=== PATIENT | female | born 1990 ===

== ENCOUNTER 2019-10-17 12:57 | Inpatient (IN) | payer OTHER ==
[2019-10-17] MEDS ORDERED: fentaNYL 100 MCG/2 ML INJ IV PRN (14:12)
[2019-10-17] MEDS ORDERED: ePHEDrine SULFATE 50 MG/1 ML INJ IV PRN (14:12)
[2019-10-17] MEDS ORDERED: BUTORPHANOL 2 MG/1 ML INJ IV PRN (14:12)
[2019-10-17] MEDS ORDERED: MINERAL OIL 30 ML ORAL LIQD PO PRN (14:12)
[2019-10-17] MEDS ORDERED: LIDOCAINE (2%) 20 MG/1 ML VIAL 20 ML MDV INFILTRATI ONE ×2 (14:12→18:09)
[2019-10-17] MEDS ORDERED: TERBUTALINE 1 MG/1 ML INJ IVP PRN (14:12)
[2019-10-17] MEDS ORDERED: ONDANSETRON 4 MG/2 ML INJ IV PRN ×2 (14:12→18:28)
[2019-10-17] MEDS ORDERED: TERBUTALINE 1 MG/1 ML INJ SUB-Q PRN (14:12)
--- NOTE | 2019-10-17 14:44 | History and Physical Report ---
History of Present Illness Date of examination: 10/17/19 Date of admission: 10/17/19 14:03 Chief complaint: Active labor History of present illness: 28 yo, @ 39.1 wks, initiated care with Deric Huston at 9.3 wks gestation. Her has been complicated by anemia and thrombocytopenia. She presents to [facility] with reports of regular painful ctxs for past hour, found to have advanced cervical dilation. Reports + FM. Denies VB or LOF. Labs: O+, antibody negative; VDRL negative; Rubella immune; HBsAg negative; HIV negative; Platelets 128k; Quad marker negative; PAP negative; Gc/Chlamydia negative; 1 hr gtt - 125; GBS negative. Past History Past Medical History: no pertinent history Past Surgical History: no surgical history Family/Genetic History: none Social history: , lives with family, full code. denies: smoking, alcohol abuse, prescription drug abuse, IV drug use - Obstetrical History Expected Date of Delivery: 10/23/19 Actual Gestation: 39 Week(s) 1 Day(s) : 3 Para: 2 Hx # Term Pregnancies: 2 Number of Pregnancies: 0 Spontaneous Abortions: 0 Induced : 0 Number of Living Children: 2 #1 Gender: Male year: 2[birth year] Birthweight: 3.175 kg Method of Delivery: Vaginal Gestational age at delivery: 40 Complications: none #2 Gender: Male year: 2,[birth year] Birthweight: 3.402 kg Method of Delivery: Vaginal Gestational age at delivery: 40 Complications: none Medications and Allergies Allergies Allergy/AdvReac Type Severity Reaction Status Date / Time No Known Allergies Allergy Unverified 10/17/19 14:22 Active Meds: Active Medications Butorphanol Tartrate (Stadol) 2 mg IV Q2H PRN PRN Reason: Pain , Severe (7-10) Ephedrine Sulfate (Ephedrine Sulfate) 10 mg IV Q2M PRN PRN Reason: Hypotension Fentanyl (Sublimaze) 100 mcg IV Q2H PRN PRN Reason: Labor Pain Oxytocin/Sodium Chloride (Pitocin/Ns 20 Unit/1000ml Drip) 20 units in 1,000 mls @ 125 mls/hr IV DIRECT SHELTON Lactated Ringer's (Lactated Ringers) 1,000 mls @ 125 mls/hr IV DIRECT SHELTON Lidocaine (Xylocaine 2%) 20 ml INFILTRATI ONCE ONE Stop: 10/17/19 14:13 Mineral Oil (Mineral Oil) 30 ml PO QHS PRN PRN Reason: Constipation Ondansetron HCl (Zofran) 4 mg IV Q8H PRN PRN Reason: Nausea And Vomiting Terbutaline Sulfate (Brethine) 0.25 mg SUB-Q ONCE PRN PRN Reason: Hyperstimulation/Hypertonicity Terbutaline Sulfate (Brethine) 0.25 mg IVP ONCE PRN PRN Reason: Hyperstimulation/Hypertonicity Review of Systems All systems: negative Genitourinary: contractions (painful) - Vital Signs Vital signs: Vital Signs Pulse BP 88 107/76 10/17/19 13:15 10/17/19 13:15 Temp Pulse Resp BP Pulse Ox 98.8 F 88 16 107/76 10/17/19 13:49 10/17/19 13:49 10/17/19 13:49 10/17/19 13:49 - Physical Exam Breasts: Positive: normal Cardiovascular: Regular rate Lungs: Positive: Normal air movement Abdomen: Positive: other (gravid) Genitourinary (Female): Positive: normal external genitalia, normal perenium Vagina: Positive: normal moisture Uterus: Positive: enlarged (S=D) Anus/Rectum: Positive: normal perianal skin Extremities: Positive: normal Deep Tendon Reflex Grade: Normal +2 - Obstetrical FHR: category 1 Uterine Contraction Monitor Mode: External Cervical Dilatation: 7.5 (vertex) Cervical Effacement Percentage: 70 station: -1 Uterine Contraction Frequency (min): 2-4 Uterine Contraction Pattern: Irregular Uterine Tone Measurement Phase: Resting Uterine Contraction Intensity: Strong/Firm Results Result Diagrams: 10/17/19 14:00 All other labs normal. Assessment and Plan - Patient Problems (1) Active labor at term Current Visit: Yes Status: Acute Plan to address problem: Admit to L & D Pain meds as desired Anticipate (2) Thin meconium stained amniotic fluid Current Visit: Yes Status: Acute Plan to address problem: AROM @ 1425, meconium stained fluids NICU at bedside for delivery
[2019-10-17 14:48] LABS: Hematocrit 32.7 % (30.3-42.9); Hemoglobin 11.2 gm/dl (10.1-14.3); Mean Corpuscular HGB Conc 34 % (30-34); Mean Corpuscular Volume 84 fl (79-97); Platelet Count 227 K/mm3 (140-440); Red Blood Count 3.91 M/mm3 (3.65-5.03)
[2019-10-17] MEDS ORDERED: LACTATED RINGERS 1,000 ML IV SCH (15:00)
[2019-10-17] MEDS ORDERED: OXYTOCIN 20 UNIT/1000ML DRIP 20 UNITS/1,000 ML BAG IV SCH ×2 (15:00→19:00)
--- NOTE | 2019-10-17 16:36 | Progress Note ---
Assessment and Plan - Patient Problems (1) Active labor at term Current Visit: Yes Status: Acute Plan to address problem: Very poor maternal pushing efforts Position in high Fowlers, let labor down Pitocin augmentation as tolerated Pain meds as desired Anticipate (2) Thin meconium stained amniotic fluid Current Visit: Yes Status: Acute Subjective - Subjective Date of service: 10/17/19 Principal diagnosis: Active labor Interval history: 28 yo, @ 39.1 wks, initiated care with Deric Huston at 9.3 wks gestation. Her has been complicated by anemia and thrombocytopenia. She presents to [facility] with reports of regular painful ctxs for past hour, found to have advanced cervical dilation. Reports + FM. Denies VB or LOF. Labs: O+, antibody negative; VDRL negative; Rubella immune; HBsAg negative; HIV negative; Platelets 128k; Quad marker negative; PAP negative; Gc/Chlamydia negative; 1 hr gtt - 125; GBS negative. Patient reports: loss of fluid (meconium stained), movement normal, contractions, no vaginal bleeding Objective - Vital Signs Vital Signs: Vital Signs - 12hr 10/17/19 10/17/19 10/17/19 13:15 13:49 14:33 Temperature 98.8 F Pulse Rate 88 88 71 Respiratory 16 Rate Blood Pressure 107/76 116/57 Blood Pressure 107/76 [Right] - Exam Breasts: deferred Cardiovascular: Regular rate Lungs: Normal air movement FHR: category 1 (with repeated early decelerations) Uterine Contraction Monitor Mode: External Cervical Dilatation: 10 (complete at 1325) Cervical Effacement Percentage: 100 station: +1 Uterine Contraction Frequency (min): 2-3 Uterine Contraction Pattern: Irregular Uterine Tone Measurement Phase: Resting Uterine Contraction Intensity: Strong/Firm Extremities: normal Deep Tendon Reflex Grade: Normal +2 - Labs Labs: Laboratory Results - last 24 hr 10/17/19 10/17/19 14:00 14:00 WBC 10.5 RBC 3.91 Hgb 11.2 Hct 32.7 MCV 84 MCH 29 MCHC 34 RDW 15.0 Plt Count 227 Blood Type O POSITIVE Antibody Screen Negative
[2019-10-17] MEDS ORDERED: OXYTOCIN DRIP 30 UNITS/500 ML BAG IV SCH (17:00)
[2019-10-17] MEDS ORDERED: diphenhydrAMINE 25 MG CAP PO PRN (18:28)
[2019-10-17] MEDS ORDERED: WITCH HAZEL/ GLYCERIN PAD TP PRN (18:28)
[2019-10-17] MEDS ORDERED: BENZOCAINE/MENTHOL 20/0.5% TOP SPRAY 56 GM TP PRN (18:28)
[2019-10-17] MEDS ORDERED: ACETAMINOPHEN 325 MG TAB PO PRN (18:28)
[2019-10-17] MEDS ORDERED: PROMETHAZINE 25 MG TAB PO PRN (18:28)
[2019-10-17] MEDS ORDERED: PROMETHAZINE 25 MG RECT SUPP PR PRN (18:28)
[2019-10-17] MEDS ORDERED: LANOLIN/ZINC/DIMETHICONE (LANSINOH) 7 GM TP PRN ×2 (18:28)
[2019-10-17] MEDS ORDERED: MAGNESIUM HYDROXIDE (MOM) ORAL LIQD UDC PO PRN (18:28)
--- NOTE | 2019-10-17 18:28 | Procedure Note ---
OB Delivery Note - Delivery Date of Delivery: 10/17/19 Surgeon: PASCALE JOYNER Estimated blood loss: 300cc - Vaginal Intrapartum events: meconium, other(please specify) (maternal exhaustion- indication for VAVD) Delivery induction: none Delivery monitor: external FHT Route of delivery: vacuum extraction Indicators for instrumentation: maternal exhaustion Delivery placenta: spontaneous Delivery cord: nuchal cord, other (x 1 - tight) Episiotomy: none Delivery laceration: 2nd degree Delivery repair: vicryl Anesthesia: local Delivery comments: VAVD done for maternal exhaustion. Patient was able to bring the vertex to +2 station. Baby was occiput posterior. Patient verbally consented for the Kiwi vacuum delivery. Kiwi vacuum applied to the vertex. Then in concert with maternal contractions the Kiwi vacuum was pumped up to the green section and gentle traction applied. 0 pop offs were noted. Baby was able to be delivered vaginally after the third set of pushes. Cord was clamped and cut at the perineum since it was a tight nuchal cord. Anterior shoulder delivered without difficulty. Kiwi removed and baby handed off to the waiting team. Cord blood obtained and the placenta was delivered spontaneously. Second-degree tear repaired with 2-0 Vicryl. Good hemostasis noted. Mother baby is stable. Lap count was correct. - A at 1 minute: 8 Gender: Male
[2019-10-17] MEDS ORDERED: SENNOSIDES/DOCUSATE SODIUM 8.6/50 MG TAB PO SCH (19:00)
[2019-10-17] MEDS: oxyCODONE /ACETAMINOPHEN 5-325MG TAB PO PRN (22:53)
[2019-10-17] MEDS: DOCUSATE SODIUM 100 MG CAP PO SCH (22:53)
[2019-10-18] MEDS: oxyCODONE /ACETAMINOPHEN 5-325MG TAB PO PRN (05:41)
[2019-10-18 09:37] LABS: Hematocrit 28.7 % (30.3-42.9); Hemoglobin 9.4 gm/dl (10.1-14.3)
[2019-10-18] MEDS: IBUPROFEN 600 MG TAB PO SCH ×3 (09:50→22:39)
[2019-10-18] MEDS: DOCUSATE SODIUM 100 MG CAP PO SCH ×2 (09:50→22:39)
--- NOTE | 2019-10-18 10:14 | Progress Note ---
Assessment and Plan - Patient Problems (1) Status post vacuum-assisted vaginal delivery Current Visit: Yes Status: Acute Plan to address problem: Continue routine PP orders Keep laceration site clean and dry Anticipate d/c home tomorrow F/U at office in 6 wks for routine PP visit or prn (2) Anemia Current Visit: Yes Status: Acute Qualifiers: Anemia type: other cause Other causes of anemia: acute posthemorrhagic Qualified Code(s): D62 - Acute posthemorrhagic anemia Plan to address problem: Asymptomatic Increase iron rich foods into diet Continue daily iron supplementation as directed with OJ Subjective - Subjective Date of service: 10/18/19 Principal diagnosis: S/P VAVD; PPD#1 Interval history: 28 yo, @ 39.1 wks, initiated care with Deric Huston at 9.3 wks gestation. Her has been complicated by anemia and thrombocytopenia. She presents to [facility] with reports of regular painful ctxs for past hour, found to have advanced cervical dilation. Reports + FM. Denies VB or LOF. Labs: O+, antibody negative; VDRL negative; Rubella immune; HBsAg negative; HIV negative; Platelets 128k; Quad marker negative; PAP negative; Gc/Chlamydia negative; 1 hr gtt - 125; GBS negative. Patient reports: appetite normal, voiding normally, pain well controlled, flatus, ambulating normally [place]: doing well, bottle feeding (and ) Objective - Vital Signs Latest vital signs: Vital Signs Temp Pulse Resp BP BP Pulse Ox 10/18/19 08:24 97.8 F 91 H 18 91/55 98 10/18/19 05:41 18 10/18/19 05:08 98.1 F 100 H 20 88/54 97 10/18/19 00:26 98.3 F 81 18 94/62 97 10/17/19 22:53 18 10/17/19 21:54 90 18 105/58 100 10/17/19 19:54 93 H 107/63 10/17/19 19:39 90 97/54 10/17/19 19:24 91 H 109/64 10/17/19 19:09 83 104/62 10/17/19 18:54 75 106/62 10/17/19 18:39 83 115/63 10/17/19 18:24 80 106/63 02/25/20 18:10 98.1 F 16 02/25/20 18:09 83 100/57 10/17/19 16:46 100 H 122/95 10/17/19 14:33 71 116/57 10/17/19 13:49 98.8 F 88 16 107/76 10/17/19 13:15 88 107/76 Intake and Output 10/17/19 10/18/19 10/18/19 23:59 07:59 15:59 Intake Total 360 Output Total 600 800 Balance -600 -440 Intake: Oral 120 Intake, Free Water 240 Output: Urine 600 800 Void 600 800 Other: Total, Intake Amount 120 Total, Output Amount 600 800 Estimated Blood Loss 300 - Exam Breasts: Present: normal Cardiovascular: Present: Regular rate Lungs: Present: Normal air movement Abdomen: Present: soft Uterus: Present: firm, fundal height below umbilicus (U-1) Extremities: Present: normal Deep Tendon Reflex Grade: Normal +2 Incision: Present: other (2nd degree laceration, healing as expected) - Labs Labs: Abnormal lab results 10/18/19 Range/Units 08:01 Hgb 9.4 L (10.1-14.3) gm/dl Hct 28.7 L (30.3-42.9) %
--- NOTE | 2019-10-18 10:22 | Discharge Summary ---
Providers - Providers Date of Admission: 10/17/19 14:03 Date of discharge: 10/19/19 (1200) Attending physician: PASCALE JOYNER Primary care physician: PASCALE JOYNER Hospitalization Reason for admission: active labor Delivery: vacuum extraction Episiotomy: none Laceration: 2nd degree (healing as expected) Other procedures: none complications: none Discharge diagnosis: IUP at term delivered, other (anemia) Sylvia baby: male Hospital course: See admission H & P; OB delivery summary and PP progress notes Condition at discharge: Good Disposition: DC-01 TO HOME OR SELFCARE - Discharge Diagnoses (1) Status post vacuum-assisted vaginal delivery Status: Acute (2) Anemia Status: Acute Qualifiers: Anemia type: other cause Other causes of anemia: acute posthemorrhagic Qualified Code(s): D62 - Acute posthemorrhagic anemia Plan - Discharge Medications Prescriptions: Ferrous Sulfate [Feosol 325 MG tab] 325 mg PO QDAY 30 Days #30 tablet - Provider Discharge Summary Activity: routine, no sex for 6 weeks, no heavy lifting 4 weeks, no strenuous exercise Diet: other (Iron rich diet) Instructions: routine Additional instructions: [] Smoking cessation referral if applicable(refer to patient education folder for contact #) [] Refer to [facility]'s [facility] Center Booklet Call your doctor immediately for: * Fever > 100.5 * Heavy vaginal bleeding ( >1 pad per hour) * Severe persistent headache * Shortness of breath * Reddened, hot, painful area to leg or breast * Drainage or odor from incision. * Keep laceration site clean and dry at all times and follow doctor's instructions regarding bathing/showering - Follow up plan Follow up: PASCALE JOYNER MD [Primary Care Provider] - 6 Weeks
[2019-10-18] MEDS ORDERED: FERROUS SULFATE 325 MG TAB PO SCH (11:00)
[2019-10-19] MEDS: IBUPROFEN 600 MG TAB PO SCH (05:50)
[2019-10-19 11:29] VITALS: BP 97/63
== END 2019-10-19 12:43 | disposition home or self-care (01) | DRG 806 ==
LOC: TRG 12:57 → LD 14:03 → OB 20:13
PROVIDERS: ADMIT Obstetrics & Gynecology; ATTEND Obstetrics & Gynecology
PROC: 10D07Z6 Extraction of Products of Conception, Vacuum, Via Natural or Artificial Opening (ICD-10-PCS; principal; 2019-10-17)
PROC: 0KQM0ZZ Repair Perineum Muscle, Open Approach (ICD-10-PCS; 2019-10-17)
PROC: 10907ZC Drainage of Amniotic Fluid, Therapeutic from Products of Conception, Via Natural or Artificial Opening (ICD-10-PCS; 2019-10-17)
DX: O77.0 Labor and delivery complicated by meconium in amniotic fluid (principal); D62 Acute posthemorrhagic anemia; Z37.0 Single live birth; O75.81 Maternal exhaustion complicating labor and delivery; O69.81X0 Labor and delivery complicated by cord around neck, without compression, not applicable or unspecified; O70.1 Second degree perineal laceration during delivery; O99.02 Anemia complicating childbirth; Z3A.39 39 weeks gestation of pregnancy
CPT/HCPCS: 36415; 85014; 85018; 85027; 86850; 86900; 86901; G0378; J2590; J3010; J7120